=== PATIENT | male | born 1950 | race Caucasian/White ===

== ENCOUNTER → 2016-07-25 | Outpatient (CLI) | payer BC ==
[~2016-07-25] MED LIST: B-12500T2 PO; BACITAB3 PO; BACT800T5 PO; BENA25CA2 PO; CEFD1CAP8 PO; CHOL4POW4 PO; CLON0.5T PO; CYAN1000VL IM; EXCETAB80 PO; IBUP40TA PO; LEVA750T PO; OMEP40CA2 PO; OXYB5TA PO; PERCOCET PO; REME30TA PO; VITA100066 PO
--- NOTE | 2016-07-25 17:36 | REP ---
MRI BRAIN WITHOUT AND WITH CONTRAST: HISTORY: Bilateral hearing loss. CONTRAST: ProHance 17 mL. Several punctate areas of increased signal intensity on T2-weighted images are present in the periventricular and subcortical white matter. This represents small vessel ischemic disease. There is no intraparenchymal hemorrhage, infarct, mass or midline shift. There is no abnormal enhancement. The ventricular system is normal in appearance. There is no extracerebral collection. There is no cerebellopontine angle mass. The inner ear structures are normal in appearance. The mastoid air cells are clear. Minimal mucosal thickening is present in the right maxillary sinus. IMPRESSION: Minimal small vessel ischemic disease. Signed by Leno Strange MD 07/26/2016 08:45 A
== END ==
LOC: M RAD 14:38
PROVIDERS: ATTEND Otolaryngology
DX: H90.3 Sensorineural hearing loss, bilateral (principal)
CPT/HCPCS: 70553; A9576

== ENCOUNTER → 2016-11-22 | Outpatient (CLI) | payer BC | LOC: M SMT 15:48 | PROVIDERS: ATTEND Urology | DX: Z12.5 Encounter for screening for malignant neoplasm of prostate (principal) | CPT/HCPCS: 36415; G0103 ==

== ENCOUNTER → 2017-02-22 | Outpatient (CLI) | payer BC ==
[~2017-02-22] MED LIST changes: +BACITAB PO; -BACITAB3 PO; -LEVA750T PO; +LEVA750T7 PO; -OXYB5TA PO; +OXYB5TAB10 PO
[2017-02-22 08:03] LABS: BASO % 0.7 % (0.0-1.0); EOS # 0.1 K/mm3 (0.0-0.50); EOS % 2.6 % (0.0-3.0); LARGE UNSTAINED CELL # 0.1 K/mm3 (0.0-0.4); LARGE UNSTAINED CELL % 2.6 % (0.0-4.0); LYMPH # 1.5 K/mm3 (1.5-4.5); LYMPH % 34.8 % (24.0-44.0); MEAN CORPUSCULAR HEMOGLOBIN 30.7 pg (27.0-33.0); MEAN CORPUSCULAR HGB CONC 34.6 g/dl (32.0-36.5); MEAN CORPUSCULAR VOLUME 88.8 fl (80.0-96.0); MONO # 0.2 K/mm3 (0.0-0.8); MONO % 3.6 % (0.0-5.0); NEUTROPHILS # 2.5 K/mm3 (1.8-7.7); NEUTROPHILS % 55.7 % (36.0-66.0); PLATELET COUNT, AUTOMATED 201 k/mm3 (150-450); RED CELL DISTRIBUTION WIDTH 12.4 % (11.5-14.5); WHITE BLOOD COUNT 4.4 K/mm3 (4.0-10.0)
== END ==
LOC: M LAB 07:09
PROVIDERS: ATTEND Allergy & Immunology
DX: R53.81 Other malaise (principal)

== ENCOUNTER → 2017-07-08 | Outpatient (CLI) | payer BC ==
[2017-07-08 08:01] LABS: AMYLASE 46 U/L (25-115)
== END ==
LOC: M LAB 07:10
PROVIDERS: ATTEND Internal Medicine Gastroenterology
DX: K50.10 Crohn's disease of large intestine without complications (principal); K56.3 Gallstone ileus; R11.0 Nausea

== ENCOUNTER → 2017-08-13 | Outpatient (CLI) | payer BC ==
[2017-08-13 08:41] LABS: TESTOSTERONE 323 NG/DL (241-827)
[2017-08-13 08:42] LABS: CORTISOL AM 18.2 UG/DL (4.3-22.4)
[2017-08-15 00:06] LABS: HUMAN GROWTH HORMONE 0.3 ng/mL (0.0-10.0)
== END ==
LOC: M LAB 07:14
DX: R53.83 Other fatigue (principal)
CPT/HCPCS: 83003

== ENCOUNTER → 2017-12-09 | Outpatient (CLI) | payer MEDICARE ==
[2017-12-09 14:51] LABS: PSA SCREENING 0.38 NG/ML (< 4.0)
== END ==
LOC: M SMT 11:54
DX: Z12.5 Encounter for screening for malignant neoplasm of prostate (principal)
CPT/HCPCS: G0103

== ENCOUNTER → 2018-05-28 | Outpatient (REF) | payer MEDICARE ==
[~2018-05-28] MED LIST changes: -CLON0.5T PO; +CLON0.5T8 PO
[2018-05-30 00:08] LABS: Lyme Disease IgG/IgM Antibodie <0.91 ISR (0.00-0.90); Lyme Disease IgM Ab Quantitati <0.80 index (0.00-0.79)
== END ==
LOC: M LAB REF 12:08
PROVIDERS: ATTEND Nurse Practitioner Adult Health
DX: R53.83 Other fatigue (principal)

== ENCOUNTER → 2018-06-11 | Outpatient (REF) | payer MEDICARE ==
[2018-06-16 08:06] LABS: FREE CORTISOL 24HR URINE 64 ug/24 hr (0-50); FREE CORTISOL URINE 33 ug/L (Undefined)
== END ==
LOC: M LAB REF 09:10
PROVIDERS: ATTEND Internal Medicine Endocrinology, Diabetes & Metabolism
DX: R53.82 Chronic fatigue, unspecified (principal)

== ENCOUNTER → 2018-06-13 | Outpatient (REF) | payer MEDICARE | LOC: M LAB 07:06 | DX: R53.82 Chronic fatigue, unspecified (principal) | CPT/HCPCS: 82533 ==

== ENCOUNTER → 2018-12-25 | Outpatient (CLI) | payer MEDICARE | LOC: M SMT 09:23 | PROVIDERS: ATTEND Nurse Practitioner Women's Health | DX: Z12.5 Encounter for screening for malignant neoplasm of prostate (principal) | CPT/HCPCS: 36415; G0103; G0463 ==

== ENCOUNTER → 2020-01-19 | Outpatient (CLI) | payer MEDICARE ==
[~2020-01-19] MED LIST changes: +CLON0.5T2 PO; -CLON0.5T8 PO; -OMEP40CA2 PO; +OMEP40CA97 PO
[2020-01-19 13:33] LABS: BLOOD UREA NITROGEN 11 MG/DL (7-18); CALCIUM LEVEL 9.7 MG/DL (8.8-10.2); CARBON DIOXIDE LEVEL 30 MEQ/L (21-32); CHLORIDE LEVEL 105 MEQ/L (98-107); CREATININE FOR GFR 1.02 MG/DL (0.70-1.30); GLOMERULAR FILTRATION RATE > 60.0 (>49); GLUCOSE, FASTING 90 MG/DL (70-100); POTASSIUM SERUM 4.3 MEQ/L (3.5-5.1); SODIUM LEVEL 138 MEQ/L (136-145)
[2020-01-19 15:58] LABS: APPEARANCE, URINE CLEAR (CLEAR); BACTERIA, URINE AUTO NEGATIVE (NEGATIVE); BILIRUBIN, URINE AUTO NEGATIVE (NEGATIVE); BLOOD, URINE BLOOD NEGATIVE (NEGATIVE); COLOR, URINE YELLOW (YELLOW); GLUCOSE, URINE (UA) AUTO NEGATIVE (NEGATIVE); KETONE, URINE AUTO NEGATIVE (NEGATIVE); LEUKOCYTE ESTERASE, URINE AUTO NEGATIVE (NEGATIVE); NITRITE, URINE AUTO NEGATIVE (NEGATIVE); PROTEIN, URINE AUTO NEGATIVE (NEGATIVE); RBC, URINE AUTO 1 /HPF (0-3); SPECIFIC GRAVITY URINE AUTO 1.014 (1.002-1.035); SQUAMOUS EPITHELIAL CELL UR AU 1 /HPF (0-6); UROBILINOGEN, URINE AUTO 0.2 mg/dL (0.0-2.0); WBC, URINE AUTO 7 /HPF (0-3)
== END ==
LOC: M PLALAB 10:56
PROVIDERS: ATTEND Nurse Practitioner Women's Health
DX: R33.9 Retention of urine, unspecified (principal); Z12.5 Encounter for screening for malignant neoplasm of prostate
CPT/HCPCS: 36415; 80048; 81001; 87086; G0103

== ENCOUNTER → 2020-01-21 | Outpatient (CLI) | payer MEDICARE ==
--- NOTE | 2020-01-21 16:34 | REP ---
Clinical: Urinary retention. Technique: Real time babcock scale ultrasound examination using curved array transducer. Findings: The kidneys are normal in reniform shape and echogenicity without hydronephrosis, cystic or renal mass lesion. Right kidney measures 12.6 x 5.7 x 5.6 cm and includes suspected 10 mm nonobstructing midpole calculus. Left kidney measures 12.3 x 4.6 x 4.7 cm. Impression: 10 mm nonobstructing right renal calculus. No hydronephrosis. Electronically Signed by Oscar Azar MD 01/21/2020 04:26 P
--- NOTE | 2020-01-21 16:39 | REP ---
Clinical: Urinary retention. Technique: Real time babcock scale ultrasound examination using curved array transducer. Findings: The bladder demonstrates wall thickening to approximately 7 mm and bilateral ureteral jets are noted. 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 The prevoid urinary volume measures approximately 490 ml. The postvoid urinary volume measures approximately 190 ml. Postvoid residual volume equals approximately 38%. Heterogeneous prostate gland measures 3.5 x 3.1 x 5.6 cm (32 ml). Impression: Significant residual postvoid volume refluxing into a moderately large posterior bladder diverticulum. Electronically Signed by Oscar Azar MD 01/21/2020 04:30 P
== END ==
LOC: M LRY 09:41
PROVIDERS: ATTEND Nurse Practitioner Women's Health
DX: N40.1 Benign prostatic hyperplasia with lower urinary tract symptoms (principal)

== ENCOUNTER → 2021-08-15 | Outpatient (REF) | payer MEDICARE ==
[~2021-08-15] MED LIST changes: +ALPR2TAB3 PO; +B-122500 PO; +CALC500T60 PO; -CEFD1CAP8 PO; +CEFD300C41 PO; +CENT1TAB2 PO; +CHOL4PKT PO; +DICY20TA20 PO; +DITR5TAB PO; +FRUICAP PO; +GABA600T4 PO; +IBUP1TAB5 PO; -IBUP40TA PO; +MIRT-60 PO; +OMEP40CA4 PO; -OMEP40CA97 PO; +OXYC1TAB23 PO; +PANT40TA29 PO; +PHEN1TAB73 PO; +QUET100T2 PO; -REME30TA PO; +TEST1GEL8 TOP
[2021-08-15 17:30] LABS: APPEARANCE, URINE CLEAR (CLEAR); BACTERIA, URINE AUTO 1+ (NEGATIVE); BILIRUBIN, URINE AUTO NEGATIVE (NEGATIVE); BLOOD, URINE BLOOD NEGATIVE (NEGATIVE); COLOR, URINE YELLOW (YELLOW); GLUCOSE, URINE (UA) AUTO NEGATIVE (NEGATIVE); KETONE, URINE AUTO NEGATIVE (NEGATIVE); LEUKOCYTE ESTERASE, URINE AUTO NEGATIVE (NEGATIVE); NITRITE, URINE AUTO NEGATIVE (NEGATIVE); PROTEIN, URINE AUTO NEGATIVE (NEGATIVE); RBC, URINE AUTO 1 /HPF (0-3); SPECIFIC GRAVITY URINE AUTO 1.011 (1.002-1.035); SQUAMOUS EPITHELIAL CELL UR AU 0 /HPF (0-6); UROBILINOGEN, URINE AUTO 0.2 mg/dL (0.0-2.0); WBC, URINE AUTO 6 /HPF (0-3)
== END ==
LOC: M SMT 16:37
PROVIDERS: ATTEND Urology
DX: R33.9 Retention of urine, unspecified (principal)

== ENCOUNTER 2021-08-23 12:35 | Day surgery (SDC) | payer MEDICARE ==
[~2021-08-23] VITALS: Ht 177.8 cm; Wt 85.6 kg
[~2021-08-23 12:35] MED LIST changes: +CIPROFLOXACIN 400 MG in IV 1 EA IV ONE; +LIDOCAINE 1% MDV 20ML VIAL SQ PRN; +LR 1,000 ML IV ONE; -OXYC1TAB23 PO
[2021-08-23] MEDS ORDERED: fentaNYL 100 MCG/2 ML INJECTION (J3010) As Ordered ONE (12:41)
[2021-08-23] MEDS ORDERED: LIDOCAINE 2% 100MG/5ML SDV (FOR ANES.) As Ordered ONE (12:42)
[2021-08-23] MEDS ORDERED: propofoL 200 MG/20 ML VIAL As Ordered ONE (12:42)
[2021-08-23] MEDS ORDERED: MIDAZOLAM INJ 2MG/2ML VIAL (J2250 PER 1MG) As Ordered ONE (12:42)
[2021-08-23] MEDS ORDERED: LIDOCAINE 1% SDV 30ML VIAL As Ordered ONE (13:32)
[2021-08-23] MEDS ORDERED: BUPIVACAINE HCL 0.25% 30ML VIAL As Ordered ONE (13:32)
[2021-08-23] MEDS ORDERED: ROCURONIUM BROMIDE 50 MG/5 ML VIAL As Ordered ONE (13:41)
[2021-08-23] MEDS ORDERED: ceFAZolin SOD 2 GM in IV 1 EA IV ONE (13:55)
[2021-08-23] MEDS ORDERED: LACRILUBE (AKWA TEARS) OPHTH OINT 3.5 GM As Ordered ONE (14:21)
[2021-08-23] MEDS ORDERED: dexameTHASONE 4 MG/ML 1ML VIAL (J1100 PER 1MG) As Ordered ONE (14:30)
[2021-08-23] MEDS ORDERED: ONDANSETRON 4MG/2ML VIAL As Ordered ONE (14:30)
[2021-08-23] MEDS ORDERED: SUGAMMADEX SODIUM 500 MG/5 ML VIAL (BRIDION) As Ordered ONE (14:30)
[2021-08-23] MEDS ORDERED: OXYC1TAB23 PO (15:05)
[2021-08-23] MEDS ORDERED: oxyCODONE 5MG TAB PO PRN (15:30)
[2021-08-23] MEDS ORDERED: ONDANSETRON 4MG/2ML VIAL IV PRN (15:30)
[2021-08-23] MEDS ORDERED: LR 1,000 ML IV SCH (15:30)
[2021-08-23] MEDS ORDERED: fentaNYL 100 MCG/2 ML INJECTION (J3010) IV PRN (15:30)
[2021-08-23] MEDS ORDERED: HYDROMORPHONE HCL 0.5 MG/ 0.5 ML SYRINGE (J1170 PER 1) IV PRN (15:30)
[2021-08-23] MEDS ORDERED: PERCOCET 5MG/325MG TAB PO PRN (15:35)
[2021-08-23 16:05] VITALS: BP 136/74
== END 2021-08-23 16:33 | disposition home or self-care (01) ==
LOC: M SDC 12:35
PROVIDERS: ATTEND Urology
DX: N35.919 Unspecified urethral stricture, male, unspecified site (principal); R33.9 Retention of urine, unspecified; K50.90 Crohn's disease, unspecified, without complications; K58.9 Irritable bowel syndrome, unspecified; K21.9 Gastro-esophageal reflux disease without esophagitis; G47.30 Sleep apnea, unspecified; Z79.899 Other long term (current) drug therapy
CPT/HCPCS: 52276; C1769; J0690; J1100; J2250; J2405; J3010

== ENCOUNTER → 2022-11-17 | Outpatient (REF) | payer MEDICARE ==
[~2022-11-17] MED LIST changes: +CHOL4POW26 PO; -CHOL4POW4 PO; -CIPROFLOXACIN 400 MG in IV 1 EA IV ONE; -LIDOCAINE 1% MDV 20ML VIAL SQ PRN; -LR 1,000 ML IV ONE; +OXYC1TAB23 PO
== END ==
LOC: M LAB REF 17:08
PROVIDERS: ATTEND Physician Assistant Medical
DX: J02.9 Acute pharyngitis, unspecified (principal)